=== PATIENT | male | born 1980 | race Caucasian/White ===

== ENCOUNTER → 2019-10-21 09:26 | Outpatient (BNVA) | payer SELFPAY | PROVIDERS: Visit Provider Nurse Practitioner Family | DX: I10 Essential (primary) hypertension (principal); Z79.899 Other long term (current) drug therapy | CPT/HCPCS: 80048 ==

== ENCOUNTER → 2020-02-26 15:12 | Outpatient (BNVA) | payer SELFPAY | PROVIDERS: Visit Provider Nurse Practitioner Family | DX: R20.0 Anesthesia of skin (principal); M79.606 Pain in leg, unspecified; I10 Essential (primary) hypertension; R20.2 Paresthesia of skin | CPT/HCPCS: 80053; 82306; 82607 ==

== ENCOUNTER → 2021-02-23 14:44 | Outpatient (BNVA) | payer SELFPAY | PROVIDERS: Visit Provider Nurse Practitioner Family | DX: E55.9 Vitamin D deficiency, unspecified (principal); R53.83 Other fatigue; R20.0 Anesthesia of skin; R20.2 Paresthesia of skin | CPT/HCPCS: 80053; 82306; 82607; 83735; 85025 ==

== ENCOUNTER → 2021-02-25 09:04 | Outpatient (BNVA) | payer SELFPAY | PROVIDERS: Visit Provider Nurse Practitioner Family | DX: D72.829 Elevated white blood cell count, unspecified (principal); M54.9 Dorsalgia, unspecified | CPT/HCPCS: 81000; 86618; 86666; 86757 ==

== ENCOUNTER → 2021-03-04 08:49 | Outpatient (BNVA) | payer SELFPAY | PROVIDERS: PCP Nurse Practitioner Family; Visit Provider Nurse Practitioner Family | DX: D72.829 Elevated white blood cell count, unspecified (principal) | CPT/HCPCS: 85025 ==